=== PATIENT | male | born 1940 | race African-American/Black ===

== ENCOUNTER 2025-04-22 10:43 | Inpatient (IN) | payer OTHER, MEDICARE ==
[2025-04-22] VITALS (9 sets, daily range): BP systolic 128–170; BP diastolic 64–86; PULSE 81–97; RESP 14–38; TEMP 36.8–36.9; O2SAT 95–100
[~2025-04-22] VITALS: Ht 172.7 cm; Wt 64.9 kg
[2025-04-22 12:42] LABS: BASOPHILS % 0.7 % (0.0-2.0); EOSINOPHILS % 0.8 % (0.0-5.0); HEMATOCRIT. 36.0 % (42.0-52.0); HEMOGLOBIN. 11.6 g/dL (14.0-18.0); LYMPHOCYTES % 9.0 % (20.0-50.0); MEAN PLATELET VOLUME 6.5 fl (7.4-10.4); MONOCYTES % 8.0 % (2.0-8.0); NEUTROPHILS % 81.5 % (40.0-76.0); PLATELET 253 x1000/uL (130-400); RED BLOOD CELL COUNT 3.80 mill/uL (4.7-6.1); RED CELL DISTRIBUTION WIDTH 13.2 % (11.6-14.6)
[2025-04-22 12:59] LABS: CREATININE 0.8 mg/dL (0.6-1.3)
[2025-04-22 13:00] LABS: UREA NITROGEN BLOOD 19 mg/dL (9-23)
[2025-04-22] MEDS ORDERED: AZITHROMYCIN 500MG/250ML 250 ML IV SCH (13:00)
[2025-04-22 13:30] LABS: TROPONIN I HIGH SENSITIVITY 247 ng/L (3.0-53)
[2025-04-22] MEDS: CEFTRIAXONE 1GM/50ML 50 ML IV ONE (13:41)
[2025-04-22 16:20] LABS: BG BASE EXCESS 1.7 mmol/L (-2.0-3.0); BG CARBOXYHEMOGLOBIN 1.2 % (0.5-1.5); BG DEOXYHEMOGLOBIN 0.9 % (0.0-5.0); BG FRACTION INSPIRED OXYGEN 40; BG HCO3 ACT 27.6 mmol/L (21.0-28.0); BG METHEMOGLOBIN 0.1 % (0.5-1.5); BG OXYGEN SATURATION 99.1 % (94.0-98.0); BG OXYHEMOGLOBIN 97.8 % (94.0-98.0); BG PCO2 48.8 mmHg (35.0-48.0); BG PH 7.371 (7.350-7.450); BG PO2 152.6 mmHg (83.0-108.0); BG SAMPLE SITE RIGHT BRACHIAL; BG TOTAL HEMOGLOBIN 13.7 g/dL (13.5-17.5); BG VENT MODE MASK - BIPAP; BG VENT RATE 16.0 set
[2025-04-22] MEDS ORDERED: DEXTROSE 50% WATER 50ML SYRINGE IV PRN (16:30)
[2025-04-22] MEDS ORDERED: DOCUSATE SODIUM 100MG CAPSULE PO PRN (16:30)
[2025-04-22] MEDS ORDERED: ONDANSETRON HCL 4MG/2ML INJ IV PRN (16:30)
[2025-04-22] MEDS ORDERED: GUAIFENESIN 200MG/10ML SUGAR FREE UDC PO PRN (16:30)
[2025-04-22] MEDS ORDERED: ACETAMINOPHEN 325MG TABLET PO PRN ×2 (16:30)
[2025-04-22] MEDS ORDERED: IPRATROPIUM/ALBUTEROL 0.5-3(2.5)MG/3ML NEB HHN PRN (16:30)
[2025-04-22] MEDS: IPRATROPIUM/ALBUTEROL 0.5-3(2.5)MG/3ML NEB HHN SCH (16:30)
[2025-04-22] MEDS ORDERED: CLONIDINE 0.1MG TABLET PO PRN (16:30)
[2025-04-22] MEDS ORDERED: HYDRALAZINE 20MG/ML VIAL IV PRN (17:15)
[2025-04-22] MEDS: BLOOD SUGAR DIAGNOSTIC STRIP TEST SCH (17:30)
[2025-04-22] MEDS: METHYLPREDNISOLONE SOD SUCC 125MG/2ML (ACT-O-VIAL) IV SCH (17:48)
[2025-04-22] MEDS: ENOXAPARIN 80MG/0.8ML SYR SUBCUT SCH (17:48)
[2025-04-22] MEDS: DEXT 5%/0.45% NACL 1000ML 1,000 ML IV SCH (17:49)
[2025-04-22] MEDS: PANTOPRAZOLE SODIUM 40 MG/VIAL IV SCH (17:53)
[2025-04-22] MEDS: INSULIN LISPRO 100 UNITS/ML SUBCUT SCH (18:00)
[2025-04-22 20:44] LABS: BG BASE EXCESS 2.4 mmol/L (-2.0-3.0); BG CARBOXYHEMOGLOBIN 0.5 % (0.5-1.5); BG DEOXYHEMOGLOBIN 2.0 % (0.0-5.0); BG FLOW(L/min) 5.00 L/min; BG FRACTION INSPIRED OXYGEN 40; BG HCO3 ACT 28.7 mmol/L (21.0-28.0); BG METHEMOGLOBIN 0.1 % (0.5-1.5); BG OXYGEN SATURATION 98.0 % (94.0-98.0); BG OXYHEMOGLOBIN 97.4 % (94.0-98.0); BG PCO2 52.1 mmHg (35.0-48.0); BG PH 7.359 (7.350-7.450); BG PO2 108.3 mmHg (83.0-108.0); BG SAMPLE SITE LEFT RADIAL; BG TOTAL HEMOGLOBIN 11.8 g/dL (13.5-17.5); BG VENT MODE NASAL CANNULA
[2025-04-22 22:53] LABS: PHOSPHORUS 3.9 mg/dL (2.5-4.9)
[2025-04-22 22:57] LABS: TROPONIN I HIGH SENSITIVITY 236 ng/L (3.0-53)
[2025-04-22] MEDS: AMLODIPINE 5MG TABLET PO SCH (22:57)
[2025-04-22] MEDS: ATORVASTATIN CALCIUM 40MG TABLET PO SCH (22:57)
[2025-04-22] MEDS: AZITHROMYCIN 500MG/250ML 250 ML IV SCH (22:57)
[2025-04-22 23:51] LABS: CLARITY URINE CLEAR (CLEAR); COLOR URINE DARK YELLOW (YELLOW); GLUCOSE URINE NEGATIVE (NEGATIVE); KETONES URINE TRACE (NEGATIVE); LEUKOCYTE ESTERASE URINE NEGATIVE (NEGATIVE); NITRITE URINE NEGATIVE (NEGATIVE); OCCULT BLOOD URINE NEGATIVE (NEGATIVE); PH URINE 5.0 (4.5-8.0); PROTEIN URINE 2+ (NEGATIVE); SPECIFIC GRAVITY URINE 1.033 (1.005-1.030); UROBILINOGEN URINE 1.0 E.U./dL (0.2-1.0)
[2025-04-22 23:52] LABS: INFLUENZA TYPE A Presumptive Negative (Pres. Neg.); INFLUENZA TYPE B Presumptive Negative (Pres. Neg.)
[2025-04-22 23:53] LABS: RESPIRATORY SYNCYTIAL VIRUS Not Detected (Not Detectd)
[2025-04-22 23:58] LABS: *AMPHETAMINES SCREEN URINE NEGATIVE (NEGATIVE); *BARBITURATES SCREEN URINE NEGATIVE (NEGATIVE); *BENZODIAZEPINES SCREEN URINE NEGATIVE (NEGATIVE); *COCAINE SCREEN URINE NEGATIVE (NEGATIVE); METHADONE URINE SCREEN NEGATIVE (NEGATIVE); OPIATES URINE SCREEN NEGATIVE (NEGATIVE)
[2025-04-22 23:59] LABS: CANNABINOID URINE SCREEN NEGATIVE (NEGATIVE); ECSTASY MDMA SCREEN URINE NEGATIVE (NEGATIVE); PHENCYCLIDINE URINE SCREEN NEGATIVE (NEGATIVE)
[2025-04-23] VITALS (14 sets, daily range): BP systolic 87–146; BP diastolic 56–85; PULSE 72–100; RESP 15–23; TEMP 36.4–37.2; O2SAT 90–100
[2025-04-23 01:30] LABS: RBC URINE 0-2 /hpf (0-2); SQUAMOUS EPITHELIAL CELL URINE FEW /lpf (RARE/1+)
[2025-04-23 01:31] LABS: BACTERIA URINE TRACE
[2025-04-23] MEDS ORDERED: IOHEXOL-350 100 ML BOTTLE ONE (02:23)
[2025-04-23] MEDS: MAGNESIUM 2 G PREMIX 50 ML IV NR (05:48)
[2025-04-23] MEDS: METHYLPREDNISOLONE SOD SUCC 40MG/ML (ACT-O-VIAL) IV SCH (05:48)
[2025-04-23] MEDS ORDERED: NON FORMULARY MED XX SCH (08:15)
[2025-04-23] MEDS ORDERED: ASPIRIN 81MG EC TABLET PO SCH (09:00)
[2025-04-23] MEDS: IRON SUCROSE COMPLEX 100 MG/5 ML ML IV SCH (09:22)
[2025-04-23] MEDS: MAGNESIUM 2 G PREMIX 50 ML IV ONE (09:22)
[2025-04-23 11:51] LABS: BG BASE EXCESS 2.6 mmol/L (-2.0-3.0); BG CARBOXYHEMOGLOBIN 0.8 % (0.5-1.5); BG DEOXYHEMOGLOBIN 12.3 % (0.0-5.0); BG FRACTION INSPIRED OXYGEN 21; BG HCO3 ACT 28.5 mmol/L (21.0-28.0); BG METHEMOGLOBIN 0.0 % (0.5-1.5); BG OXYGEN SATURATION 87.6 % (94.0-98.0); BG OXYHEMOGLOBIN 86.9 % (94.0-98.0); BG PCO2 49.7 mmHg (35.0-48.0); BG PH 7.376 (7.350-7.450); BG PO2 53.9 mmHg (83.0-108.0); BG SAMPLE SITE RIGHT BRACHIAL; BG TOTAL HEMOGLOBIN 11.3 g/dL (13.5-17.5); BG VENT MODE ROOM AIR
[2025-04-23] MEDS: METHYLPREDNISOLONE SOD SUCC 125MG/2ML (ACT-O-VIAL) IV SCH (13:34)
[2025-04-23] MEDS: CEFTRIAXONE 1GM/50ML 50 ML IV SCH (13:34)
[2025-04-23] MEDS: SILDENAFIL CITRATE 20MG TABLET PO SCH (13:35)
[2025-04-23] MEDS: AZITHROMYCIN 500MG/250ML 250 ML IV SCH (17:15)
[2025-04-24] VITALS (18 sets, daily range): BP systolic 95–149; BP diastolic 62–96; PULSE 74–112; RESP 16–27; TEMP 36.2–36.7; O2SAT 91–99
[2025-04-24] MEDS: FAMOTIDINE 20MG/2ML VIAL IV SCH (08:59)
[2025-04-24 12:22] LABS: HEMATOCRIT. 30.4 % (42.0-52.0); HEMOGLOBIN. 9.8 g/dL (14.0-18.0); MEAN PLATELET VOLUME 6.7 fl (7.4-10.4); PLATELET 319 x1000/uL (130-400); RED BLOOD CELL COUNT 3.30 mill/uL (4.7-6.1); RED CELL DISTRIBUTION WIDTH 13.5 % (11.6-14.6)
[2025-04-24 12:49] LABS: CREATININE 1.0 mg/dL (0.6-1.3); TROPONIN I HIGH SENSITIVITY 123 ng/L (3.0-53)
[2025-04-24 12:50] LABS: ASPARTATE AMINOTRANSFERASE 16 IU/L (<34); BILIRUBIN DIRECT 0.1 mg/dL (<=3.0); BILIRUBIN TOTAL 0.3 mg/dL (0.1-1.0); TRIGLYCERIDE 29 mg/dL (0-150); UREA NITROGEN BLOOD 36 mg/dL (9-23)
[2025-04-24 12:51] LABS: LDL CHOLESTEROL 33 mg/dL (5-100); PROTEIN TOTAL 7.0 g/dL (6.0-8.3); T4 FREE 1.03 ng/dL (0.89-1.76)
[2025-04-24 12:54] LABS: INR 1.0
[2025-04-24 20:49] LABS: LYMPHOCYTES % MANUAL 3.0 % (20.0-50.0); MONOCYTES % MANUAL 4.0 % (2.0-8.0); NEUTROPHILS % MANUAL 93.0 % (45.0-75.0); PLATELET ESTIMATE NORMAL
[2025-04-24] MEDS: METHYLPREDNISOLONE SOD SUCC 125MG/2ML (ACT-O-VIAL) IV SCH (22:02)
[2025-04-25] VITALS (10 sets, daily range): BP systolic 119–134; BP diastolic 62–84; PULSE 82–122; RESP 13–26; TEMP 36.6–37.2; O2SAT 87–98
[2025-04-25] MEDS ORDERED: LIP40 PO (10:12)
[2025-04-25] MEDS ORDERED: AMLO5TAB88 PO (10:12)
[2025-04-25] MEDS ORDERED: REV20 PO (10:12)
[2025-04-26] VITALS: BP 95/47; PULSE 85; RESP 16; TEMP 36.6; O2SAT 98
== END 2025-04-26 05:08 | disposition home or self-care (01) | DRG 280 ==
LOC: ER 10:43 → 5EST 13:05 → EDBEDREQSVC 13:22 → EDBEDREQTM 13:22 → EDBEDREQ 13:22 → ENRESERV 14:04
PROVIDERS: ADMIT Hospitalist; ATTEND Hospitalist
PROC: 5A09357 Assistance with Respiratory Ventilation, Less than 24 Consecutive Hours, Continuous Positive Airway Pressure (ICD-10-PCS; 2025-04-22)
PROC: 5A09357 Assistance with Respiratory Ventilation, Less than 24 Consecutive Hours, Continuous Positive Airway Pressure (ICD-10-PCS; principal; 2025-04-23)
DX: I11.0 Hypertensive heart disease with heart failure (principal); I50.43 Acute on chronic combined systolic (congestive) and diastolic (congestive) heart failure; I21.A1 Myocardial infarction type 2; J96.01 Acute respiratory failure with hypoxia; J84.9 Interstitial pulmonary disease, unspecified; D53.9 Nutritional anemia, unspecified; E11.9 Type 2 diabetes mellitus without complications; H54.7 Unspecified visual loss; I10 Essential (primary) hypertension; D50.9 Iron deficiency anemia, unspecified; I71.9 Aortic aneurysm of unspecified site, without rupture; I27.21 Secondary pulmonary arterial hypertension; Z79.4 Long term (current) use of insulin; Z79.82 Long term (current) use of aspirin; Z79.899 Other long term (current) drug therapy; Z86.711 Personal history of pulmonary embolism; Z87.891 Personal history of nicotine dependence
CPT/HCPCS: 36415; 36600; 71045; 71275; 74174; 80048; 80061; 80076; 80305; 81003; 82040; 82375; 82550; 82805; 82962; 83540; 83550; 83605; 83735; 83880; 84100; 84145; 84439; 84443; 84484; 85025; 85379; 86850; 86900; 87070; 87420; 87804; 93005; 93306; 93970; 94070; 94640; 94660; 94664; 97163; 99285; A4606; J0456; J0696; J1308; J1650; J1815; J2470; J2919; J3475; Q9967

== ENCOUNTER 2025-06-07 19:45 | Emergency (ER) | payer MEDICARE, OTHER ==
[~2025-06-07] VITALS: Ht 162.6 cm; Wt 59.0 kg
[~2025-06-07 19:45] MED LIST: AMLO5TAB88 PO; LIP40 PO; REV20 PO
[2025-06-07 19:47] VITALS: O2SAT 95
[2025-06-07 20:48] LABS: CREATININE 0.7 mg/dL (0.6-1.3); UREA NITROGEN BLOOD 10 mg/dL (9-23)
[2025-06-07 20:50] LABS: BASOPHILS % 0.5 % (0.0-2.0); EOSINOPHILS % 1.0 % (0.0-5.0); HEMATOCRIT. 33.0 % (42.0-52.0); HEMOGLOBIN. 10.9 g/dL (14.0-18.0); LYMPHOCYTES % 7.7 % (20.0-50.0); MEAN PLATELET VOLUME 6.3 fl (7.4-10.4); MONOCYTES % 7.3 % (2.0-8.0); NEUTROPHILS % 83.5 % (40.0-76.0); PLATELET 386 x1000/uL (130-400); RED BLOOD CELL COUNT 3.64 mill/uL (4.7-6.1); RED CELL DISTRIBUTION WIDTH 12.3 % (11.6-14.6)
[2025-06-07 21:06] LABS: CLARITY URINE CLEAR (CLEAR); COLOR URINE YELLOW (YELLOW); GLUCOSE URINE NEGATIVE (NEGATIVE); KETONES URINE NEGATIVE (NEGATIVE); LEUKOCYTE ESTERASE URINE TRACE (NEGATIVE); NITRITE URINE NEGATIVE (NEGATIVE); OCCULT BLOOD URINE NEGATIVE (NEGATIVE); PH URINE 7.5 (4.5-8.0); PROTEIN URINE NEGATIVE (NEGATIVE); SPECIFIC GRAVITY URINE 1.012 (1.005-1.030); UROBILINOGEN URINE 0.2 E.U./dL (0.2-1.0)
[2025-06-07 21:25] LABS: BACTERIA URINE TRACE; RBC URINE NONE SEEN /hpf (0-2); SQUAMOUS EPITHELIAL CELL URINE FEW /lpf (RARE/1+); WBC URINE 0-2 /hpf (0-2)
[2025-06-07] MEDS: CEFTRIAXONE 1GM/50ML 50 ML IV ONE (22:05)
[2025-06-07] MEDS: SODIUM CHLORIDE 0.9% (SEPSIS BOLUS) IV ONE (22:08)
[2025-06-07 22:33] LABS: INR 1.2
[2025-06-07 22:38] LABS: CREATININE 0.6 mg/dL (0.6-1.3)
[2025-06-07 22:39] LABS: UREA NITROGEN BLOOD 11 mg/dL (9-23)
[2025-06-07 22:40] LABS: ASPARTATE AMINOTRANSFERASE 17 IU/L (<34)
[2025-06-07 22:41] LABS: BILIRUBIN DIRECT 0.2 mg/dL (<=3.0); BILIRUBIN TOTAL 0.5 mg/dL (0.1-1.0); PROTEIN TOTAL 6.2 g/dL (6.0-8.3)
[2025-06-07 22:55] LABS: BG BASE EXCESS 6.7 mmol/L (-2.0-3.0); BG CARBOXYHEMOGLOBIN 0.6 % (0.5-1.5); BG DEOXYHEMOGLOBIN 9.5 % (0.0-5.0); BG FRACTION INSPIRED OXYGEN 32; BG HCO3 ACT 31.5 mmol/L (21.0-28.0); BG METHEMOGLOBIN 0.3 % (0.5-1.5); BG OXYGEN SATURATION 90.4 % (94.0-98.0); BG OXYHEMOGLOBIN 89.6 % (94.0-98.0); BG PCO2 46.1 mmHg (35.0-48.0); BG PH 7.452 (7.350-7.450); BG PO2 58.3 mmHg (83.0-108.0); BG SAMPLE SITE RIGHT BRACHIAL; BG TOTAL HEMOGLOBIN 10.8 g/dL (13.5-17.5); BG VENT MODE NASAL CANNULA
[2025-06-08 00:22] LABS: INFLUENZA TYPE A Presumptive Negative (Pres. Neg.)
[2025-06-08 00:23] LABS: INFLUENZA TYPE B Presumptive Negative (Pres. Neg.)
[2025-06-08 00:24] LABS: RESPIRATORY SYNCYTIAL VIRUS Not Detected (Not Detectd)
[2025-06-08 01:28] VITALS: BP 146/78; PULSE 94; RESP 18; TEMP 36.6; O2SAT 98
== END 2025-06-08 01:35 | disposition home or self-care (01) ==
LOC: ER 19:45 → CMPBEDREQ 06-08 08:13
DX: R33.9 Retention of urine, unspecified (principal); E11.9 Type 2 diabetes mellitus without complications; I10 Essential (primary) hypertension; F03.90 Unspecified dementia, unspecified severity, without behavioral disturbance, psychotic disturbance, mood disturbance, and anxiety; Z20.822 Contact with and (suspected) exposure to COVID-19; Z79.899 Other long term (current) drug therapy
CPT/HCPCS: 99291; 96365; 71045; 87426; 80076; 80048; 81003; 83880; 83605; 83735; 85025; 85610; 87420; 87040; 87086; 87186; 87804 ×2; 87077; 36415; 84145; 82805; 82375; 93005; 36600; J0696; J7030; A4606; A4615

== ENCOUNTER 2025-06-16 17:00 | Inpatient (IN) | payer OTHER, MEDICARE ==
[~2025-06-16] VITALS: Ht 170.2 cm; Wt 64.9 kg
[2025-06-16 18:02] LABS: HEMATOCRIT. 26.3 % (42.0-52.0); HEMOGLOBIN. 8.7 g/dL (14.0-18.0); MEAN PLATELET VOLUME 6.7 fl (7.4-10.4); PLATELET 371 x1000/uL (130-400); RED BLOOD CELL COUNT 2.88 mill/uL (4.7-6.1); RED CELL DISTRIBUTION WIDTH 12.5 % (11.6-14.6)
[2025-06-16 18:20] LABS: CREATININE 0.7 mg/dL (0.6-1.3)
[2025-06-16 18:21] LABS: PROTEIN TOTAL 6.6 g/dL (6.0-8.3); UREA NITROGEN BLOOD 23 mg/dL (9-23)
[2025-06-16 18:23] LABS: ASPARTATE AMINOTRANSFERASE 28 IU/L (<34); BILIRUBIN DIRECT 0.3 mg/dL (<=3.0); BILIRUBIN TOTAL 0.7 mg/dL (0.1-1.0); LYMPHOCYTES % MANUAL 2.0 % (20.0-50.0); MONOCYTES % MANUAL 5.0 % (2.0-8.0); NEUTROPHILS % MANUAL 93.0 % (45.0-75.0); PLATELET ESTIMATE NORMAL
[2025-06-16 18:37] LABS: TROPONIN I HIGH SENSITIVITY 559 ng/L (3.0-53)
[2025-06-16] MEDS ORDERED: HEPARIN 5000 UNITS/ML VIAL IV PRN ×2 (21:00)
[2025-06-16] MEDS ORDERED: HEPARIN 5000 UNITS/ML VIAL IV SCH (21:00)
[2025-06-16] MEDS ORDERED: HEPARIN 25,000 UNITS PREMIX 250 ML IV PRN (21:00)
[2025-06-16 21:32] LABS: TROPONIN I HIGH SENSITIVITY 558 ng/L (3.0-53)
[2025-06-16 22:03] LABS: INR 1.3
[2025-06-16] MEDS ORDERED: ACETAMINOPHEN 325MG TABLET PO PRN ×2 (22:30)
[2025-06-16] MEDS ORDERED: CLONIDINE 0.1MG TABLET PO PRN (22:30)
[2025-06-16] MEDS ORDERED: IPRATROPIUM/ALBUTEROL 0.5-3(2.5)MG/3ML NEB HHN PRN (22:30)
[2025-06-16] MEDS ORDERED: ONDANSETRON HCL 4MG/2ML INJ IV PRN (22:30)
[2025-06-16] MEDS ORDERED: GUAIFENESIN 200MG/10ML SUGAR FREE UDC PO PRN (22:30)
[2025-06-16] MEDS: CEFTRIAXONE 1GM/50ML 50 ML IV SCH (22:51)
[2025-06-16] MEDS: METHYLPREDNISOLONE SOD SUCC 40MG/ML (ACT-O-VIAL) IV SCH (22:52)
[2025-06-16] MEDS: PANTOPRAZOLE SODIUM 40 MG/VIAL IV SCH (22:55)
[2025-06-16] MEDS: POTASSIUM CHLORIDE 20MEQ TABLET SR PO NR (22:57)
[2025-06-16] MEDS ORDERED: DEXTROSE 50% WATER 50ML SYRINGE IV PRN (23:00)
[2025-06-16 23:25] LABS: BG BASE EXCESS 11.6 mmol/L (-2.0-3.0); BG CARBOXYHEMOGLOBIN 1.0 % (0.5-1.5); BG DEOXYHEMOGLOBIN 4.1 % (0.0-5.0); BG FLOW(L/min) 8.00 L/min; BG FRACTION INSPIRED OXYGEN 60; BG HCO3 ACT 38.0 mmol/L (21.0-28.0); BG METHEMOGLOBIN 0.2 % (0.5-1.5); BG OXYGEN SATURATION 95.9 % (94.0-98.0); BG OXYHEMOGLOBIN 94.7 % (94.0-98.0); BG PCO2 62.1 mmHg (35.0-48.0); BG PH 7.405 (7.350-7.450); BG PO2 87.4 mmHg (83.0-108.0); BG SAMPLE SITE LEFT BRACHIAL; BG TOTAL HEMOGLOBIN 9.6 g/dL (13.5-17.5); BG VENT MODE MASK - SIMPLE
[2025-06-16] MEDS: MAGNESIUM 2 G PREMIX 50 ML IV NR (23:33)
[2025-06-16] MEDS: IOHEXOL-350 100 ML BOTTLE ONE (23:55)
[2025-06-17] VITALS (81 sets, daily range): BP systolic 103–163; BP diastolic 61–104; PULSE 73–112; RESP 13–41; TEMP 36.5–36.8; O2SAT 81–100
[2025-06-17] MEDS ORDERED: AZITHROMYCIN 500MG/250ML 250 ML IV SCH
[2025-06-17] MEDS ORDERED: NON FORMULARY MED XX SCH (02:15)
[2025-06-17] MEDS: AZITHROMYCIN 500MG/250ML 250 ML IV SCH (02:39)
[2025-06-17] MEDS: IPRATROPIUM/ALBUTEROL 0.5-3(2.5)MG/3ML NEB HHN SCH (03:22)
[2025-06-17] MEDS: SILDENAFIL CITRATE 20MG TABLET PO SCH (06:13)
[2025-06-17] MEDS: BLOOD SUGAR DIAGNOSTIC STRIP TEST SCH ×2 (06:14→11:30)
[2025-06-17] MEDS: INSULIN LISPRO 100 UNITS/ML SUBCUT SCH ×2 (06:24→12:00)
[2025-06-17 06:44] LABS: FOLIC ACID (FOLATE) SERUM 9.56 ng/mL (>5.38)
[2025-06-17 06:48] LABS: VITAMIN B12 SERUM 686 pg/mL (211-911)
[2025-06-17 06:51] LABS: HEMATOCRIT. 27.2 % (42.0-52.0); HEMOGLOBIN. 9.0 g/dL (14.0-18.0); MEAN PLATELET VOLUME 6.3 fl (7.4-10.4); PLATELET 341 x1000/uL (130-400); RED BLOOD CELL COUNT 2.99 mill/uL (4.7-6.1); RED CELL DISTRIBUTION WIDTH 12.6 % (11.6-14.6)
[2025-06-17 06:56] LABS: CREATININE 0.6 mg/dL (0.6-1.3)
[2025-06-17 06:57] LABS: PROTEIN TOTAL 6.5 g/dL (6.0-8.3); T4 FREE 1.28 ng/dL (0.89-1.76); UREA NITROGEN BLOOD 19 mg/dL (9-23)
[2025-06-17 06:58] LABS: ASPARTATE AMINOTRANSFERASE 23 IU/L (<34)
[2025-06-17 06:59] LABS: BILIRUBIN DIRECT 0.2 mg/dL (<=3.0); BILIRUBIN TOTAL 0.5 mg/dL (0.1-1.0)
[2025-06-17 07:26] LABS: INFLUENZA TYPE A Presumptive Negative (Pres. Neg.); INFLUENZA TYPE B Presumptive Negative (Pres. Neg.); RESPIRATORY SYNCYTIAL VIRUS Not Detected (Not Detectd)
[2025-06-17 08:30] LABS: TROPONIN I HIGH SENSITIVITY 499 ng/L (3.0-53)
[2025-06-17] MEDS: IRON SUCROSE COMPLEX 100 MG/5 ML ML IV SCH (08:54)
[2025-06-17] MEDS ORDERED: DEXTROSE 50% WATER 50ML SYRINGE IV PRN (09:45)
[2025-06-17] MEDS ORDERED: LACTATED RINGERS 1,000 ML IV SCH (10:00)
[2025-06-17] MEDS: DEXT 5%/0.45% NACL 1000ML 1,000 ML IV SCH (10:19)
[2025-06-17 10:41] LABS: BG BASE EXCESS 11.9 mmol/L (-2.0-3.0); BG CARBOXYHEMOGLOBIN 0.9 % (0.5-1.5); BG DEOXYHEMOGLOBIN 12.2 % (0.0-5.0); BG FRACTION INSPIRED OXYGEN 40; BG HCO3 ACT 37.5 mmol/L (21.0-28.0); BG METHEMOGLOBIN 0.3 % (0.5-1.5); BG OXYGEN SATURATION 87.7 % (94.0-98.0); BG OXYHEMOGLOBIN 86.6 % (94.0-98.0); BG PCO2 54.5 mmHg (35.0-48.0); BG PH 7.455 (7.350-7.450); BG PO2 53.7 mmHg (83.0-108.0); BG SAMPLE SITE LEFT RADIAL; BG TOTAL HEMOGLOBIN 9.9 g/dL (13.5-17.5); BG VENT MODE MASK - BIPAP; BG VENT RATE 14.0 set
[2025-06-17 10:56] LABS: TRIGLYCERIDE 46.0 mg/dL (0-150)
[2025-06-17 10:57] LABS: LDL CHOLESTEROL 37.0 mg/dL (5-100)
[2025-06-17 11:06] LABS: CLARITY URINE TURBID (CLEAR); COLOR URINE YELLOW (YELLOW); GLUCOSE URINE NEGATIVE (NEGATIVE); KETONES URINE NEGATIVE (NEGATIVE); LEUKOCYTE ESTERASE URINE 1+ (NEGATIVE); NITRITE URINE NEGATIVE (NEGATIVE); OCCULT BLOOD URINE 2+ (NEGATIVE); PH URINE 5.5 (4.5-8.0); PROTEIN URINE 2+ (NEGATIVE); SPECIFIC GRAVITY URINE 1.046 (1.005-1.030); UROBILINOGEN URINE 1.0 E.U./dL (0.2-1.0)
[2025-06-17 12:05] LABS: SQUAMOUS EPITHELIAL CELL URINE 1+ /lpf (RARE/1+)
[2025-06-17 12:07] LABS: BACTERIA URINE 2+; YEAST URINE 4+
[2025-06-17 13:33] LABS: *AMPHETAMINES SCREEN URINE NEGATIVE (NEGATIVE); *BARBITURATES SCREEN URINE NEGATIVE (NEGATIVE); *BENZODIAZEPINES SCREEN URINE NEGATIVE (NEGATIVE); *COCAINE SCREEN URINE NEGATIVE (NEGATIVE); CANNABINOID URINE SCREEN NEGATIVE (NEGATIVE); ECSTASY MDMA SCREEN URINE NEGATIVE (NEGATIVE); METHADONE URINE SCREEN NEGATIVE (NEGATIVE); OPIATES URINE SCREEN NEGATIVE (NEGATIVE); PHENCYCLIDINE URINE SCREEN NEGATIVE (NEGATIVE)
[2025-06-17] MEDS ORDERED: HEPARIN 25,000 UNITS PREMIX 250 ML IV PRN (14:00)
[2025-06-17] MEDS: HEPARIN 25,000 UNITS PREMIX 250 ML IV SCH (14:59)
[2025-06-17] MEDS: HEPARIN 80 UNITS/KG BOLUS IV SCH (14:59)
[2025-06-17 17:38] LABS: INR 1.3
[2025-06-17 17:52] LABS: CREATINE KINASE MB FRACTION 2.6 ng/mL (0.5-3.6)
[2025-06-17 17:56] LABS: TROPONIN I HIGH SENSITIVITY 443 ng/L (3.0-53)
[2025-06-17] MEDS ORDERED: IPRATROPIUM BROMIDE (0.02%) 0.5MG/2.5ML NEB HHN PRN (18:00)
[2025-06-17] MEDS: ESMOLOL 2500MG PREMIX 250 ML IV PRN (18:37)
[2025-06-17 19:42] LABS: LYMPHOCYTES % MANUAL 7.0 % (20.0-50.0); MONOCYTES % MANUAL 4.0 % (2.0-8.0); NEUTROPHILS % MANUAL 89.0 % (45.0-75.0); PLATELET ESTIMATE NORMAL
[2025-06-17] MEDS ORDERED: HEPARIN BOLUS PRN aPTT <36 IV (21:00)
[2025-06-17] MEDS ORDERED: HEPARIN BOLUS PRN aPTT 37-44 IV (21:00)
[2025-06-17] MEDS: IPRATROPIUM BROMIDE (0.02%) 0.5MG/2.5ML NEB HHN SCH (21:59)
[2025-06-17] MEDS: ATORVASTATIN CALCIUM 40MG TABLET PO SCH (22:18)
[2025-06-17] MEDS: CEFTRIAXONE 1GM/50ML 50 ML IV SCH (22:18)
[2025-06-18] VITALS (94 sets, daily range): BP systolic 87–148; BP diastolic 52–86; PULSE 66–98; RESP 12–38; TEMP 36.4–37.1; O2SAT 86–100
[2025-06-18 05:54] LABS: HEMATOCRIT. 25.1 % (42.0-52.0); HEMOGLOBIN. 8.0 g/dL (14.0-18.0); MEAN PLATELET VOLUME 6.4 fl (7.4-10.4); PLATELET 364 x1000/uL (130-400); RED BLOOD CELL COUNT 2.72 mill/uL (4.7-6.1); RED CELL DISTRIBUTION WIDTH 12.8 % (11.6-14.6)
[2025-06-18 06:10] LABS: CREATININE 0.7 mg/dL (0.6-1.3); UREA NITROGEN BLOOD 22 mg/dL (9-23)
[2025-06-18 06:12] LABS: CREATINE KINASE MB FRACTION 1.5 ng/mL (0.5-3.6); PHOSPHORUS 3.9 mg/dL (2.5-4.9)
[2025-06-18 10:17] LABS: LYMPHOCYTES % MANUAL 7.0 % (20.0-50.0); MONOCYTES % MANUAL 3.0 % (2.0-8.0); NEUTROPHILS % MANUAL 90.0 % (45.0-75.0); PLATELET ESTIMATE NORMAL
[2025-06-18] MEDS: METHYLPREDNISOLONE SOD SUCC 125MG/2ML (ACT-O-VIAL) IV SCH (10:21)
[2025-06-18] MEDS: DOXYCYCLINE 100MG/100ML 100 ML IV SCH (10:21)
[2025-06-18] MEDS: METOPROLOL TARTRATE 25MG TABLET PO SCH (16:00)
[2025-06-18] MEDS: ENOXAPARIN 60MG/0.6ML SYR SUBCUT SCH (18:44)
[2025-06-18 18:59] LABS: BG BASE EXCESS 12.7 mmol/L (-2.0-3.0); BG CARBOXYHEMOGLOBIN 1.0 % (0.5-1.5); BG DEOXYHEMOGLOBIN 21.6 % (0.0-5.0); BG FLOW(L/min) 25.00 L/min; BG FRACTION INSPIRED OXYGEN 40; BG HCO3 ACT 38.0 mmol/L (21.0-28.0); BG METHEMOGLOBIN 0.3 % (0.5-1.5); BG OXYGEN SATURATION 78.1 % (94.0-98.0); BG OXYHEMOGLOBIN 77.1 % (94.0-98.0); BG PCO2 53.0 mmHg (35.0-48.0); BG PH 7.473 (7.350-7.450); BG PO2 42.3 mmHg (83.0-108.0); BG SAMPLE SITE RIGHT BRACHIAL; BG TOTAL HEMOGLOBIN 9.8 g/dL (13.5-17.5); BG VENT MODE HIGH FLOW
[2025-06-18] MEDS: PANTOPRAZOLE SODIUM 40 MG/VIAL IV SCH (20:49)
[2025-06-18] MEDS: LACTULOSE 20G/30ML UDC PO SCH (20:49)
[2025-06-18] MEDS: NA PHOS,M-B/NA PHOS,DI-BA ENEMA 118ML PR SCH (21:45)
[2025-06-18] MEDS: POLYETHYLENE GLYCOL 3350 (17GM) 1 DOSE PACK PO PRN (22:59)
[2025-06-19] VITALS (16 sets, daily range): BP systolic 94–133; BP diastolic 56–77; PULSE 72–105; RESP 12–46; TEMP 36.5–37; O2SAT 87–100
[2025-06-19 07:20] LABS: HEMATOCRIT. 28.0 % (42.0-52.0); HEMOGLOBIN. 9.2 g/dL (14.0-18.0); MEAN PLATELET VOLUME 6.4 fl (7.4-10.4); PLATELET 392 x1000/uL (130-400); RED BLOOD CELL COUNT 3.07 mill/uL (4.7-6.1); RED CELL DISTRIBUTION WIDTH 13.0 % (11.6-14.6)
[2025-06-19 07:36] LABS: CREATININE 0.8 mg/dL (0.6-1.3); UREA NITROGEN BLOOD 27 mg/dL (9-23)
[2025-06-19 07:38] LABS: PHOSPHORUS 3.4 mg/dL (2.5-4.9)
[2025-06-19 09:08] LABS: BG BASE EXCESS 12.2 mmol/L (-2.0-3.0); BG CARBOXYHEMOGLOBIN 0.8 % (0.5-1.5); BG DEOXYHEMOGLOBIN 16.8 % (0.0-5.0); BG FLOW(L/min) 20.00 L/min; BG FRACTION INSPIRED OXYGEN 40; BG HCO3 ACT 38.2 mmol/L (21.0-28.0); BG METHEMOGLOBIN 0.3 % (0.5-1.5); BG OXYGEN SATURATION 83.0 % (94.0-98.0); BG OXYHEMOGLOBIN 82.1 % (94.0-98.0); BG PCO2 58.2 mmHg (35.0-48.0); BG PH 7.435 (7.350-7.450); BG PO2 48.5 mmHg (83.0-108.0); BG SAMPLE SITE RIGHT RADIAL; BG TOTAL HEMOGLOBIN 9.6 g/dL (13.5-17.5); BG VENT MODE HIGH FLOW
[2025-06-19] MEDS: INSULIN LISPRO 100 UNITS/ML SUBCUT SCH (18:17)
[2025-06-19] MEDS ORDERED: LORATADINE 10MG TABLET PO SCH (20:45)
[2025-06-19] MEDS: METOPROLOL TARTRATE 25MG TABLET PO SCH (21:00)
[2025-06-19 21:16] LABS: LYMPHOCYTES % MANUAL 2.0 % (20.0-50.0); MONOCYTES % MANUAL 2.0 % (2.0-8.0); NEUTROPHILS % MANUAL 96.0 % (45.0-75.0); PLATELET ESTIMATE NORMAL
[2025-06-20] VITALS (17 sets, daily range): BP systolic 103–154; BP diastolic 54–82; PULSE 65–95; RESP 14–22; TEMP 36.6–37; O2SAT 93–100
[2025-06-20 08:21] LABS: CREATININE 0.8 mg/dL (0.6-1.3); UREA NITROGEN BLOOD 28 mg/dL (9-23)
[2025-06-20 08:37] LABS: BG BASE EXCESS 11.4 mmol/L (-2.0-3.0); BG CARBOXYHEMOGLOBIN 1.7 % (0.5-1.5); BG DEOXYHEMOGLOBIN 4.6 % (0.0-5.0); BG FLOW(L/min) 25.00 L/min; BG FRACTION INSPIRED OXYGEN 40; BG HCO3 ACT 37.4 mmol/L (21.0-28.0); BG METHEMOGLOBIN 0.2 % (0.5-1.5); BG OXYGEN SATURATION 95.3 % (94.0-98.0); BG OXYHEMOGLOBIN 93.5 % (94.0-98.0); BG PCO2 58.7 mmHg (35.0-48.0); BG PH 7.422 (7.350-7.450); BG PO2 76.5 mmHg (83.0-108.0); BG SAMPLE SITE LEFT RADIAL; BG TOTAL HEMOGLOBIN 9.0 g/dL (13.5-17.5); BG VENT MODE HIGH FLOW
[2025-06-20 09:05] LABS: HEMATOCRIT. 25.1 % (42.0-52.0); HEMOGLOBIN. 8.2 g/dL (14.0-18.0); MEAN PLATELET VOLUME 6.8 fl (7.4-10.4); PLATELET 381 x1000/uL (130-400); RED BLOOD CELL COUNT 2.77 mill/uL (4.7-6.1); RED CELL DISTRIBUTION WIDTH 12.9 % (11.6-14.6)
[2025-06-20] MEDS: DOXYCYCLINE HYCLATE 100MG CAPSULE PO SCH (10:37)
[2025-06-20] MEDS: FLUCONAZOLE 100MG TABLET PO SCH (18:16)
[2025-06-21] VITALS (15 sets, daily range): BP systolic 107–146; BP diastolic 52–119; PULSE 64–90; RESP 11–22; TEMP 36.5–36.9; O2SAT 94–100
[2025-06-21 06:13] LABS: HEMATOCRIT. 28.9 % (42.0-52.0); HEMOGLOBIN. 9.1 g/dL (14.0-18.0); MEAN PLATELET VOLUME 6.6 fl (7.4-10.4); PLATELET 382 x1000/uL (130-400); RED BLOOD CELL COUNT 3.14 mill/uL (4.7-6.1); RED CELL DISTRIBUTION WIDTH 13.1 % (11.6-14.6)
[2025-06-21 06:30] LABS: CREATININE 1.1 mg/dL (0.6-1.3); UREA NITROGEN BLOOD 27 mg/dL (9-23)
[2025-06-21 13:30] LABS: LYMPHOCYTES % MANUAL 6.0 % (20.0-50.0); MONOCYTES % MANUAL 2.0 % (2.0-8.0); NEUTROPHILS % MANUAL 92.0 % (45.0-75.0); PLATELET ESTIMATE NORMAL
[2025-06-21] MEDS ORDERED: DEXTROSE 50% WATER 50ML SYRINGE IV PRN (18:00)
[2025-06-21] MEDS: INSULIN GLARGINE 100 UNITS/ML SUBCUT NR (18:08)
[2025-06-21] MEDS: INSULIN LISPRO 100 UNITS/ML SUBCUT SCH (18:09)
[2025-06-21 18:44] LABS: LYMPHOCYTES % MANUAL 4.0 % (20.0-50.0); MONOCYTES % MANUAL 3.0 % (2.0-8.0); NEUTROPHILS % MANUAL 93.0 % (45.0-75.0); PLATELET ESTIMATE NORMAL
[2025-06-22] VITALS (14 sets, daily range): BP systolic 132–166; BP diastolic 68–98; PULSE 68–85; RESP 10–28; TEMP 36.2–37; O2SAT 79–100
[2025-06-22] MEDS: INSULIN GLARGINE 100 UNITS/ML SUBCUT SCH (12:27)
[2025-06-22] MEDS: LOSARTAN 25 MG TABLET PO SCH (15:40)
[2025-06-22] MEDS: METHYLPREDNISOLONE SOD SUCC 40MG/ML (ACT-O-VIAL) IV SCH (15:40)
[2025-06-22] MEDS: METOPROLOL TARTRATE 50MG TABLET PO SCH (21:32)
[2025-06-22 22:11] LABS: HEMATOCRIT. 34.7 % (42.0-52.0); HEMOGLOBIN. 10.9 g/dL (14.0-18.0); MEAN PLATELET VOLUME 6.7 fl (7.4-10.4); PLATELET 425 x1000/uL (130-400); RED BLOOD CELL COUNT 3.71 mill/uL (4.7-6.1); RED CELL DISTRIBUTION WIDTH 13.3 % (11.6-14.6)
[2025-06-22 22:25] LABS: LYMPHOCYTES % MANUAL 4.0 % (20.0-50.0); MONOCYTES % MANUAL 2.0 % (2.0-8.0); NEUTROPHILS % MANUAL 94.0 % (45.0-75.0)
[2025-06-22 22:26] LABS: PLATELET ESTIMATE INCREASED
[2025-06-22 22:39] LABS: CREATININE 0.9 mg/dL (0.6-1.3); PROTEIN TOTAL 6.5 g/dL (6.0-8.3); UREA NITROGEN BLOOD 21 mg/dL (9-23)
[2025-06-22 22:41] LABS: ASPARTATE AMINOTRANSFERASE 24 IU/L (<34); BILIRUBIN TOTAL 0.4 mg/dL (0.1-1.0)
[2025-06-23] VITALS (11 sets, daily range): BP systolic 131–156; BP diastolic 66–107; PULSE 61–84; RESP 14–25; TEMP 36.2–36.6; O2SAT 97–100
[2025-06-23 07:19] LABS: PLATELET 433 x1000/uL (130-400); RED BLOOD CELL COUNT 3.08 mill/uL (4.7-6.1); RED CELL DISTRIBUTION WIDTH 12.9 % (11.6-14.6)
[2025-06-23 07:35] LABS: CREATININE 0.7 mg/dL (0.6-1.3)
[2025-06-23 07:36] LABS: UREA NITROGEN BLOOD 29 mg/dL (9-23)
[2025-06-23 09:43] LABS: BG BASE EXCESS 13.1 mmol/L (-2.0-3.0); BG CARBOXYHEMOGLOBIN 0.6 % (0.5-1.5); BG DEOXYHEMOGLOBIN 2.6 % (0.0-5.0); BG FRACTION INSPIRED OXYGEN 44; BG HCO3 ACT 39.8 mmol/L (21.0-28.0); BG METHEMOGLOBIN 0.3 % (0.5-1.5); BG OXYGEN SATURATION 97.4 % (94.0-98.0); BG OXYHEMOGLOBIN 96.5 % (94.0-98.0); BG PCO2 63.8 mmHg (35.0-48.0); BG PH 7.413 (7.350-7.450); BG PO2 93.4 mmHg (83.0-108.0); BG SAMPLE SITE RIGHT RADIAL; BG TOTAL HEMOGLOBIN 10.3 g/dL (13.5-17.5); BG VENT MODE NASAL CANNULA
[2025-06-23] MEDS: MAGNESIUM 2 G PREMIX 50 ML IV NR (10:30)
[2025-06-23] MEDS: AMLODIPINE 5MG TABLET PO NR (18:14)
[2025-06-23] MEDS ORDERED: APIXABAN 5 MG TABLET PO SCH ×2 (21:00)
[2025-06-24] MEDS ORDERED: LOSARTAN 50 MG TABLET PO SCH (09:00)
== END 2025-06-23 21:30 | disposition short-term general hospital (02) | DRG 871 ==
LOC: ER 17:00 → MICUSO 21:52 → EDBEDREQ 21:56 → EDBEDREQTM 21:56 → EDBEDREQSVC 21:56 → ENRESERV 06-17 00:11 → CVICU 06-17 21:00 → 5EST 06-19 00:20
PROVIDERS: ADMIT Hospitalist; ATTEND Hospitalist
PROC: 5A09357 Assistance with Respiratory Ventilation, Less than 24 Consecutive Hours, Continuous Positive Airway Pressure (ICD-10-PCS; principal; 2025-06-17)
PROC: 5A0945A Assistance with Respiratory Ventilation, 24-96 Consecutive Hours, High Flow/Velocity Cannula (ICD-10-PCS; 2025-06-17)
DX: A41.9 Sepsis, unspecified organism (principal); G93.41 Metabolic encephalopathy; I21.A1 Myocardial infarction type 2; I26.99 Other pulmonary embolism without acute cor pulmonale; J96.21 Acute and chronic respiratory failure with hypoxia; J96.22 Acute and chronic respiratory failure with hypercapnia; J18.9 Pneumonia, unspecified organism; I50.23 Acute on chronic systolic (congestive) heart failure; I71.012 Dissection of descending thoracic aorta; I27.20 Pulmonary hypertension, unspecified; J44.0 Chronic obstructive pulmonary disease with (acute) lower respiratory infection; N39.0 Urinary tract infection, site not specified; I11.0 Hypertensive heart disease with heart failure; D50.9 Iron deficiency anemia, unspecified; I42.9 Cardiomyopathy, unspecified; K59.00 Constipation, unspecified; E87.6 Hypokalemia; E83.42 Hypomagnesemia; L89.156 Pressure-induced deep tissue damage of sacral region; E78.5 Hyperlipidemia, unspecified; J84.10 Pulmonary fibrosis, unspecified; N40.0 Benign prostatic hyperplasia without lower urinary tract symptoms; I25.10 Atherosclerotic heart disease of native coronary artery without angina pectoris; Z86.711 Personal history of pulmonary embolism; Z87.891 Personal history of nicotine dependence
CPT/HCPCS: 36415; 36600; 71045; 71275; 80048; 80053; 80061; 80076; 80305; 81003; 82375; 82550; 82553; 82607; 82728; 82746; 82805; 82962; 83036; 83540; 83550; 83605; 83735; 83880; 84100; 84145; 84439; 84443; 84484; 85025; 85027; 85379; 86850; 86900; 87077; 87420; 87804; 92610; 93005; 93306; 93970; 94070; 94640; 94660; 94664; 97163; 97166; 97530; 98960; 99285; A4606; J0456; J0696; J1644; J1650; J1815; J2470; J2919; J3475; J3490; Q9967